=== PATIENT | female | born 1975 | race Caucasian/White ===

== ENCOUNTER → 2021-07-23 14:54 | Outpatient (CLI) | payer OTHER, SELFPAY ==
[2021-07-23 13:52] LABS: Chloride 104 mmol/L (98-107); Potassium 4.3 mmoL/L (3.5-5.1); Sodium 139 mmol/L (136-145)
[2021-07-23 13:55] LABS: Alanine Aminotransferase 26 U/L (12-78); Albumin Level 4.3 g/dl (3.5-5.0); Albumin/Globulin Ratio 1.7 (1.1-1.8); Alkaline Phosphatase 82 U/L (38-126); Anion Gap 12.3 mEq/L (5-15); Aspartate Amino Transferase 28 U/L (14-36); Bilirubin,Total 0.3 mg/dl (0.2-1.3); Blood Urea Nitrogen 8 mg/dl (7-17); Carbon Dioxide 27 mmol/L (22.0-30.0); Cholesterol 187 mg/dl (140-200); Estimated Glomerular Filt Rate 108 ml/min (>60); GFR (African American) 130 ML/MIN (>60); Globulin 2.6 g/dL (1.3-3.2); Total Protein,Serum 6.9 g/dl (6.3-8.2); Triglycerides 123 mg/dl (30-150); VLDL Cholesterol 25 mg/dL (0-40)
[2021-07-23 13:56] LABS: Calcium 8.5 mg/dl (8.4-10.2); Chol/HDL Ratio 3.3 (1-3.5); Glucose 79 mg/dl (74-100); HDL Cholesterol 56 mg/dl (40-60)
[2021-07-23 14:06] LABS: Basophils % 0.7 % (0.1-2.0); Eosinophils # 0.1 K/mm3 (0.0-0.4); Hematocrit 39.1 % (37.0-47.0); Hemoglobin 12.2 g/dL (12.2-16.2); Lymphocytes # 1.7 K/mm3 (0.7-4.5); Lymphocytes % 28.7 % (10-50); Mean Corpuscular HGB Conc 31.2 g/dL (31.8-35.4); Mean Corpuscular Hemoglobin 26.8 pg (27.0-31.2); Mean Corpuscular Volume 85.8 fl (81-99); Monocytes # 0.4 K/mm3 (0.1-1.0); Monocytes % 6.1 % (1.7-9.3); Neutrophils # 3.7 K/mm3 (1.8-7.8); Neutrophils % 63.5 % (37.0-80.0); Platelet Count 434 K/mm3 (142-424); Red Blood Count 4.55 M/mm3 (4.20-5.40); Red Cell Distribution Width 15.4 % (11.5-17.5); White Blood Count 5.8 K/mm3 (4.8-10.8)
[2021-07-23 14:14] LABS: Direct LDL Cholesterol 118.89 mg/dL (100-129)
[2021-07-23 14:26] LABS: Thyroid Stimulating Hormone 4.74 uIU/mL (0.465-4.68)
[2021-07-23 14:56] LABS: 25-OH Vitamin D, Total 45.7 ng/mL (30-100)
[2021-07-23 19:13] LABS: Hemoglobin A1C 5.8 % (4.0-6.0)
== END ==
PROVIDERS: Visit Provider Emergency Medicine
DX: E03.9 Hypothyroidism, unspecified (principal); E55.9 Vitamin D deficiency, unspecified
CPT/HCPCS: 80053; 80061; 82306; 83036; 84439; 84443; 85025

== ENCOUNTER → 2021-10-22 21:23 | Outpatient (CLI) | payer OTHER, SELFPAY ==
[2021-10-22 21:36] LABS: Coronavirus 19, PCR Not Detected (NotDetected); Influenza A, PCR Not Detected (NotDetected); Influenza B, PCR Not Detected (NotDetected)
== END ==
PROVIDERS: PCP Emergency Medicine; Visit Provider Emergency Medicine
DX: Z20.822 Contact with and (suspected) exposure to COVID-19 (principal)
CPT/HCPCS: C9803; U0003; U0005

== ENCOUNTER → 2021-11-08 18:48 | Outpatient (CLI) | payer OTHER, SELFPAY ==
[2021-11-08 18:57] LABS: Adenovirus,PCR Not Detected (NotDetected); Bordetella Pertussis Not Detected (NotDetected); Chlamydophila Pneumoniae, PCR Not Detected (NotDetected); Coronavirus 19, PCR Not Detected (NotDetected); Coronavirus 229E Not Detected (NotDetected); Coronavirus NL63 Not Detected (NotDetected); Coronavirus OC43 Not Detected (NotDetected); Coronovirus HKU1,PCR Not Detected (NotDetected); Human Metapneumovirus Not Detected (NotDetected); Influenza A, PCR Not Detected (NotDetected); Influenza AH1, 2009 Not Detected (NotDetected); Influenza AH1, PCR Not Detected (NotDetected); Influenza AH3,PCR Not Detected (NotDetected); Influenza B, PCR Not Detected (NotDetected); Mycoplasma Pneumoniae, PCR Not Detected (NotDetected); Parainfluenza 1, PCR Not Detected (NotDetected); Parainfluenza 2, PCR Not Detected (NotDetected); Parainfluenza 3, PCR Not Detected (NotDetected); Parainfluenza 4, PCR Not Detected (NotDetected); Respiratory Syncytial Virus Not Detected (NotDetected); Rhinovirus/Enterovirus Not Detected (NotDetected)
== END ==
PROVIDERS: PCP Emergency Medicine; Visit Provider Emergency Medicine
DX: Z20.822 Contact with and (suspected) exposure to COVID-19 (principal)
CPT/HCPCS: 87581; 87632; 87798; C9803; U0003; U0005

== ENCOUNTER → 2021-12-28 09:45 | Outpatient (CLI) | payer OTHER, MEDICAID, SELFPAY ==
--- NOTE | 2021-12-28 09:46 | US_ITS ---
FINAL REPORT CLINICAL HISTORY: abnormal uterine bleeding: prolonged periods FINDINGS: Transvaginal sonographic images of the pelvis were obtained. The uterus measures 6.2 x 4.2 x 3.1 cm. The endometrium measures 10 mm, which is within normal limits. No uterine mass is identified. The right ovary measures 3.0 cm in length and left ovary measures 2.6 cm in length. Normal blood flow seen to the ovaries. There are cysts or follicles in bilateral ovaries. There is no evidence of free fluid. IMPRESSION: No acute abnormality identified. Reviewed, Interpreted and Dictated by Sawyer Minor MD Transcribed by Erin Gonzalez Authenticated and [facility]
== END ==
PROVIDERS: PCP Emergency Medicine; Visit Provider Obstetrics & Gynecology
DX: N93.9 Abnormal uterine and vaginal bleeding, unspecified (principal)
CPT/HCPCS: 76830

== ENCOUNTER → 2022-01-31 04:53 | Outpatient (CLI) | payer OTHER, MEDICAID, SELFPAY ==
[2022-01-31 05:39] LABS: Basophils # 0.1 K/mm3 (0-0.2); Basophils % 1.2 % (0.1-2.0); Eosinophils # 0.1 K/mm3 (0.0-0.4); Eosinophils % 1.5 % (0.1-12.0); Hematocrit 39.6 % (37.0-47.0); Hemoglobin 12.5 g/dL (12.2-16.2); Lymphocytes # 1.9 K/mm3 (0.7-4.5); Lymphocytes % 25.2 % (10-50); Mean Corpuscular HGB Conc 31.7 g/dL (31.8-35.4); Mean Corpuscular Hemoglobin 26.5 pg (27.0-31.2); Mean Corpuscular Volume 83.6 fl (81-99); Mean Platelet Volume 7.5 fl (7.4-10.4); Monocytes # 0.3 K/mm3 (0.1-1.0); Monocytes % 4.2 % (1.7-9.3); Neutrophils # 5.2 K/mm3 (1.8-7.8); Platelet Count 457 K/mm3 (142-424); Red Blood Count 4.74 M/mm3 (4.20-5.40); Red Cell Distribution Width 15.4 % (11.5-17.5); White Blood Count 7.6 K/mm3 (4.8-10.8)
[2022-01-31 05:41] LABS: Chloride 103 mmol/L (98-107); Potassium 4.3 mmoL/L (3.5-5.1); Sodium 140 mmol/L (136-145)
[2022-01-31 05:44] LABS: Alanine Aminotransferase 21 U/L (12-78); Albumin Level 4.3 g/dl (3.5-5.0); Albumin/Globulin Ratio 1.5 (1.1-1.8); Alkaline Phosphatase 88 U/L (38-126); Anion Gap 12.3 mEq/L (5-15); Aspartate Amino Transferase 26 U/L (14-36); Bilirubin,Total < 0.1 mg/dl (0.2-1.3); Blood Urea Nitrogen 11 mg/dl (7-17); Calcium 8.8 mg/dl (8.4-10.2); Carbon Dioxide 29 mmol/L (22.0-30.0); Estimated Glomerular Filt Rate 90 ml/min (>60); GFR (African American) 109 ML/MIN (>60); Globulin 2.8 g/dL (1.3-3.2); Glucose 104 mg/dl (74-100); Total Protein,Serum 7.1 g/dl (6.3-8.2)
== END ==
PROVIDERS: PCP Emergency Medicine; Visit Provider Obstetrics & Gynecology
DX: Z01.812 Encounter for preprocedural laboratory examination (principal); Z20.822 Contact with and (suspected) exposure to COVID-19; N93.9 Abnormal uterine and vaginal bleeding, unspecified; N92.0 Excessive and frequent menstruation with regular cycle
CPT/HCPCS: 80053; 85025; C9803; U0003; U0005

== ENCOUNTER 2022-02-02 06:02 | Day surgery (SDC) | payer OTHER, MEDICAID, SELFPAY ==
[2022-01-31 11:01] VITALS: BMI 38.5
[2022-02-02] VITALS (13 sets, daily range): BP systolic 100–135; BP diastolic 53–85; PULSE 54–84; RESP 16–22; TEMP 36.4–38; O2SAT 95–100
[2022-02-02 07:05] LABS: Urine Pregnancy, HCG Qual. Negative (Negative)
--- NOTE | 2022-02-02 08:01 | P.PN_ITS ---
[facility] Medical History Cervical spine fracture Depressed Hypothyroid Surgical History History of cholecystectomy Hx of appendectomy Hx of foot surgery Family History Other No significant family history Social History (Updated 02/02/22 @ 06:21 by Kenia Simeon RN) Smoking Status: Former smoker alcohol intake: never substance use type: denies use current occupational status: employed Travel in the last 8 weeks: None [facility] Anesthesia Checklist Patient Identification Patient Identification: Arm Band and Verbal (Name & ) Structural Data Admitted From: Home Planned Operative Procedure/s: Hysteroscopy D&C Consent for Planned Operative Procedure(s) Verified: Yes Verified Documents: Surgical Consent NPO Status Verified Time NPO: 00:00 Additional verifications Anesthesia Reactions: Yes (N/V) Hx Blood Transfusions: No Blood Transfusion Reaction: No Airway Assessment C-Spine Mobility Assessed: Yes TMJ Mobility Assessed: Yes Dentition: Good Dentition Neurological Assessment Level of Consciousness: Awake, Alert and Appropriate Anesthesia Plan Anesthesia Risk discussed: Yes ASA Class: II Anesthesia Type: MAC
--- NOTE | 2022-02-02 08:36 | EXP.OP.NOTE ---
Date of procedure: 02/02/22 Pre-op Diagnosis:: 1. Abnormal uterine bleeding 2. Menorrhagia 3. Hypothyroidism 4. Obesity 5. Cervical cancer screening Post-op Diagnosis:: 1. Abnormal uterine bleeding 2. Menorrhagia 3. Hypothyroidism 4. Obesity 5. Cervical cancer screening Procedure performed:: 1. Pap smear under anesthesia 2. Hysteroscopy, Dilation and curettage 3. 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 She complains of heavy, abnormal bleeding. Since May she has been bleeding for 16-21 days out of every month. The bleeding starts with dark brown/black for 1-2 weeks followed by heavy red bleeding with clots.?She has history of hypothyroidism. Last TSH was 07/23/21 and was 4.74. Pelvic ultrasound 12/28/21 was negative. She had Essure coils placed for sterilization. History of SAB x 3. Hx of x 1. She has adopted two children. Patient has not stopped bleeding long enough to schedule a pap smear. Operative findings:: On bimanual exam, uterus is midplane. No adnexal masses palpated. Cervix appears grossly normal. On hysteroscopic exam, bilateral tubal ostia easily visualized. Scant amount of endometrial tissue. No masses or polyps. Operative note:: Risks, benefits and alternatives were discussed with the patient. Risks include but are not limited to bleeding, infection, uterine perforation and VTE. Patient voiced understanding and agreed to proceed. She was wheeled back to the operating room and placed under general anesthesia without difficulty. She was placed in dorsal lithotomy position and prepped and draped in the normal sterile fashion. A straight catheter was used to drain the bladder. A bimanual exam was performed. A weighted Auvard was placed in the vaginal vault. Single tooth tenaculum was placed on anterior lip of the cervix. Uterus sounded to 8. Sequential Moe dilators were used to dilate the cervical os. Hysteroscope was tested inserted through the cervix without difficulty. Endometrial cavity was evaluated. See findings above. Pictures were taken. Hysteroscope was removed. Medium size sharp curette was inserted through the cervix into the uterine cavity. Endometrial curettings will be sent to pathology for review. Novasure sure sound was used to obtain uterine length. Uterus measured 4.0 cm in length and 3.5 cm in cavity width. Novasure deviced was inserted and ablation was performed per protocol at a power of 77 w for 99 seconds. Novasure device was removed. Hysteroscope was reinserted and cavity revealed adequate burn and no uterine perforation. Hysteroscope was removed. Instruments were removed from the vagina. Tenaculum site was noted to have a small amount oozing. Pressure was applied to tenaculum site as was Silver nitrate stick and then Monsels soution. Hemostasis was noted after intervention. Patient was awaken from anesthesia without difficulty. She was transported to recovery room in stable condition. Patient will be discharged home when awake and ambulating. She was given postop instructions as well as instructions to follow-up in the office in 2 weeks at which time pathology will be reviewed. Condition: stable Disposition: same day Specimens:: 1. Endometrial curettings Complications:: None
== END 2022-02-02 11:30 | disposition home or self-care (01) ==
PROVIDERS: PCP Emergency Medicine; Visit Provider Obstetrics & Gynecology
PROC: (CPT 58563; principal; 2022-02-02 07:30)
DX: N92.0 Excessive and frequent menstruation with regular cycle (principal); N93.9 Abnormal uterine and vaginal bleeding, unspecified; Z12.4 Encounter for screening for malignant neoplasm of cervix; E03.9 Hypothyroidism, unspecified; E66.9 Obesity, unspecified; Z79.899 Other long term (current) drug therapy
CPT/HCPCS: 58563; 57410; 81025; J0131; J2405